=== PATIENT | male | born 1945 | race Caucasian/White ===

== ENCOUNTER 2016-07-16 17:43 | Inpatient (IN) | payer MEDICARE, BC ==
[~2016-07-16] VITALS: Ht 167.6 cm; Wt 72.7 kg
[~2016-07-16 17:43] MED LIST: LISI-167 PO; OMEP20CA9 PO
[2016-07-16 19:04] LABS: HEMOGLOBIN 12.9 g/dL (13.7-18.0)
[2016-07-16 19:11] LABS: ASPARTATE AMINO TRANSFERASE 33 U/L (15-37); BLOOD UREA NITROGEN 31 mg/dL (7-18)
[2016-07-16] MEDS ORDERED: SODIUM CHLORIDE FLUSH 10ML SYR IVF ONE (19:30)
[2016-07-16] MEDS ORDERED: SODIUM CHLORIDE 0.9% 1,000ML IVBOLUS ONE ×3 (19:30→23:00)
[2016-07-16] MEDS ORDERED: POTASSIUM CHLORIDE 40 MEQ in SODIUM CHLORIDE 0.9% 500 ML IV ONE (20:00)
[2016-07-16] MEDS ORDERED: POTASSIUM CHLORIDE 20 MEQ TAB.ER.PRT PO ONE (20:00)
[2016-07-16] MEDS ORDERED: SODIUM CHLORIDE 0.9% 1,000 ML IV ONE (20:26)
[2016-07-17] MEDS ORDERED: BISACODYL 10 MG SUPP PR PRN (00:30)
[2016-07-17] MEDS ORDERED: POLYETHYLENE GLYCOL 17 GM PACKET PO PRN (00:30)
[2016-07-17] MEDS ORDERED: LABETALOL 5MG/ML, 20ML IV PRN (00:30)
[2016-07-17] MEDS ORDERED: DOCUSATE 100 MG CAPSULE PO PRN (00:30)
[2016-07-17] MEDS ORDERED: ACETAMINOPHEN 325 MG TABLET PO PRN (00:30)
[2016-07-17] MEDS ORDERED: ONDANSETRON ODT 4 MG PO PRN (00:30)
[2016-07-17 00:36] LABS: IS PT STATUS REG ER OR PRE ER? YES
[2016-07-17] MEDS: LACTULOSE 20 GM/30 ML UDC PO SCH ×4 (01:00→20:20)
[2016-07-17 02:45] VITALS: BP 100/70
[2016-07-17] MEDS: POTASSIUM CHLORIDE 20 MEQ, MAGNESIUM SULFATE 1 GM, FOLIC ACID 1 MG, THIAMINE 100 MG, MV... IV SCH (03:56)
[2016-07-17] MEDS: HEPARIN 5,000 UNITS/ML, 1ML SQ SCH ×3 (06:00→20:26)
[2016-07-17 07:00] LABS: ASPARTATE AMINO TRANSFERASE 28 U/L (15-37); BLOOD UREA NITROGEN 24 mg/dL (7-18)
[2016-07-17 07:17] LABS: HEMOGLOBIN 10.8 g/dL (13.7-18.0)
[2016-07-17 07:50] VITALS: BP 100/56
[2016-07-17] MEDS ORDERED: POTASSIUM CHLORIDE 20 MEQ TAB.ER.PRT PO ONE ×2 (08:00→14:00)
[2016-07-17] MEDS ORDERED: MAGNESIUM SULFATE PMX 2GM/50ML 50 ML IV ONE (08:00)
[2016-07-17] MEDS ORDERED: LORazepam 2 MG/ML, 1ML IVPush PRN (08:00)
[2016-07-17] MEDS: THIAMINE 100MG TABLET PO SCH (08:35)
[2016-07-17] MEDS: PANTOPROZOLE 40MG TABLET PO SCH (08:35)
[2016-07-17] MEDS: FOLIC ACID 1 MG TABLET PO SCH (08:35)
[2016-07-17] MEDS: VANCOMYCIN 50 MG/ML ORAL SUSP PO SCH ×3 (10:06→20:20)
[2016-07-17 12:50] LABS: BLOOD UREA NITROGEN 22 mg/dL (7-18)
[2016-07-17] MEDS: NS + 20MEQ KCL 1,000 ML IV SCH ×2 (14:00→20:20)
[2016-07-17 14:10] VITALS: BP 88/53
[2016-07-17 19:15] VITALS: BP 95/70
[2016-07-18 01:10] VITALS: BP 83/55
[2016-07-18] MEDS: NS + 20MEQ KCL 1,000 ML IV SCH ×3 (01:26→18:07)
[2016-07-18] MEDS: POTASSIUM CHLORIDE 20 MEQ, MAGNESIUM SULFATE 1 GM, FOLIC ACID 1 MG, THIAMINE 100 MG, MV... IV SCH (02:08)
[2016-07-18] MEDS: VANCOMYCIN 50 MG/ML ORAL SUSP PO SCH ×4 (02:09→21:22)
[2016-07-18] MEDS: HEPARIN 5,000 UNITS/ML, 1ML SQ SCH ×3 (05:11→21:22)
[2016-07-18 06:05] LABS: HEMOGLOBIN 9.7 g/dL (13.7-18.0)
[2016-07-18 06:24] LABS: ASPARTATE AMINO TRANSFERASE 26 U/L (15-37); BLOOD UREA NITROGEN 14 mg/dL (7-18)
[2016-07-18] MEDS ORDERED: POTASSIUM CHLORIDE 20 MEQ TAB.ER.PRT PO ONE (08:30)
[2016-07-18 08:52] VITALS: BP 101/71
[2016-07-18] MEDS: PANTOPROZOLE 40MG TABLET PO SCH (09:18)
[2016-07-18] MEDS: FOLIC ACID 1 MG TABLET PO SCH (09:18)
[2016-07-18] MEDS: THIAMINE 100MG TABLET PO SCH (09:18)
[2016-07-18] MEDS: METOPROLOL TARTRATE 25 MG TABLET PO SCH ×2 (10:41→17:55)
[2016-07-18 13:52] VITALS: BP 104/76
[2016-07-18 20:13] VITALS: BP 108/78
[2016-07-19] MEDS: POTASSIUM CHLORIDE 20 MEQ, MAGNESIUM SULFATE 1 GM, FOLIC ACID 1 MG, THIAMINE 100 MG, MV... IV SCH (00:46)
[2016-07-19 01:51] VITALS: BP 102/70
[2016-07-19] MEDS: VANCOMYCIN 50 MG/ML ORAL SUSP PO SCH ×4 (03:35→20:09)
[2016-07-19 05:54] VITALS: BP 92/53
[2016-07-19] MEDS: HEPARIN 5,000 UNITS/ML, 1ML SQ SCH ×3 (05:55→22:47)
[2016-07-19] MEDS: METOPROLOL TARTRATE 25 MG TABLET PO SCH ×2 (05:55→18:00)
[2016-07-19 06:12] LABS: BLOOD UREA NITROGEN 10 mg/dL (7-18)
[2016-07-19 06:51] LABS: HEMOGLOBIN 9.7 g/dL (13.7-18.0)
[2016-07-19 06:52] VITALS: BP 92/63
[2016-07-19] MEDS ORDERED: MAGNESIUM SULFATE PMX 2GM/50ML 50 ML IV ONE (08:00)
[2016-07-19] MEDS: NS + 20MEQ KCL 1,000 ML IV SCH ×3 (09:15→22:47)
[2016-07-19] MEDS: FOLIC ACID 1 MG TABLET PO SCH (09:16)
[2016-07-19] MEDS: PANTOPROZOLE 40MG TABLET PO SCH (09:16)
[2016-07-19] MEDS: THIAMINE 100MG TABLET PO SCH (09:16)
[2016-07-19 12:49] VITALS: BP 98/60
[2016-07-19 20:11] VITALS: BP 97/67
[2016-07-20 02:48] VITALS: BP 93/65
[2016-07-20] MEDS: VANCOMYCIN 50 MG/ML ORAL SUSP PO SCH ×4 (02:49→21:37)
[2016-07-20] MEDS: NS + 20MEQ KCL 1,000 ML IV SCH (04:29)
[2016-07-20 05:50] VITALS: BP 96/66
[2016-07-20] MEDS: HEPARIN 5,000 UNITS/ML, 1ML SQ SCH ×3 (05:55→21:37)
[2016-07-20] MEDS: METOPROLOL TARTRATE 25 MG TABLET PO SCH (05:57)
[2016-07-20 06:13] LABS: BLOOD UREA NITROGEN 9 mg/dL (7-18)
[2016-07-20 06:58] VITALS: BP 95/68
[2016-07-20] MEDS ORDERED: POTASSIUM PHOSPHATE 44 MEQ in SODIUM CHLORIDE 0.9% 500 ML IV ONE (07:30)
[2016-07-20] MEDS ORDERED: MAGNESIUM SULFATE PMX 4GM/100M 100 ML IV ONE (07:30)
[2016-07-20] MEDS: PANTOPROZOLE 40MG TABLET PO SCH (08:11)
[2016-07-20] MEDS: FOLIC ACID 1 MG TABLET PO SCH (08:11)
[2016-07-20] MEDS: THIAMINE 100MG TABLET PO SCH (08:11)
[2016-07-20] MEDS: MAGNESIUM OXIDE 400 MG TABLET PO SCH ×2 (10:15→21:37)
[2016-07-20 14:17] VITALS: BP 98/70
[2016-07-20] MEDS: SODIUM CHLORIDE 0.9% 1,000 ML IV SCH (14:35)
[2016-07-20 20:24] VITALS: BP 110/76
[2016-07-21 02:10] VITALS: BP 104/59
[2016-07-21] MEDS: VANCOMYCIN 50 MG/ML ORAL SUSP PO SCH ×4 (02:46→21:23)
[2016-07-21] MEDS: SODIUM CHLORIDE 0.9% 1,000 ML IV SCH (02:46)
[2016-07-21] MEDS: HEPARIN 5,000 UNITS/ML, 1ML SQ SCH ×3 (05:12→21:23)
[2016-07-21 06:07] LABS: BLOOD UREA NITROGEN 10 mg/dL (7-18)
[2016-07-21 06:59] VITALS: BP 108/62
[2016-07-21] MEDS: FOLIC ACID 1 MG TABLET PO SCH (08:50)
[2016-07-21] MEDS: PANTOPROZOLE 40MG TABLET PO SCH (08:50)
[2016-07-21] MEDS: MAGNESIUM OXIDE 400 MG TABLET PO SCH ×2 (08:50→21:23)
[2016-07-21] MEDS: THIAMINE 100MG TABLET PO SCH (08:50)
[2016-07-21] MEDS ORDERED: INSULIN REGULAR 100 UNITS/ML, 3ML VIAL IVPush ONE (12:00)
[2016-07-21] MEDS ORDERED: SODIUM BICARBONATE 1 MEQ/ML, 50ML VIAL IVPush ONE (12:00)
[2016-07-21] MEDS ORDERED: DEXTROSE 50%, 50ML SYRINGE IVPush ONE (12:00)
[2016-07-21] MEDS ORDERED: SODIUM BICARB 8.4%, 50ML SYRINGE ONE (12:30)
[2016-07-21] MEDS: LACTATED RINGERS 1,000 ML IV SCH (12:46)
[2016-07-21 13:47] VITALS: BP 110/68
[2016-07-21] MEDS: LACTOBACILLUS CHEW TABLET PO SCH ×2 (15:41→21:23)
[2016-07-21] MEDS ORDERED: MAGNESIUM SULFATE PMX 2GM/50ML 50 ML IV ONE (16:30)
[2016-07-21 16:46] LABS: BLOOD UREA NITROGEN 10 mg/dL (7-18)
[2016-07-21 20:24] VITALS: BP 109/78
[2016-07-22] MEDS: LACTATED RINGERS 1,000 ML IV SCH (01:20)
[2016-07-22 02:39] VITALS: BP 114/82
[2016-07-22] MEDS: VANCOMYCIN 50 MG/ML ORAL SUSP PO SCH ×4 (05:42→20:55)
[2016-07-22 06:01] LABS: BLOOD UREA NITROGEN 10 mg/dL (7-18)
[2016-07-22] MEDS: LACTOBACILLUS CHEW TABLET PO SCH ×4 (06:04→20:55)
[2016-07-22] MEDS: HEPARIN 5,000 UNITS/ML, 1ML SQ SCH ×3 (06:06→20:55)
[2016-07-22 07:31] VITALS: BP 95/63
[2016-07-22] MEDS: THIAMINE 100MG TABLET PO SCH (08:48)
[2016-07-22] MEDS: MAGNESIUM OXIDE 400 MG TABLET PO SCH ×2 (08:48→20:55)
[2016-07-22] MEDS: FOLIC ACID 1 MG TABLET PO SCH (08:48)
[2016-07-22] MEDS: PANTOPROZOLE 40MG TABLET PO SCH (08:48)
[2016-07-22] MEDS ORDERED: MAGNESIUM SULFATE PMX 4GM/100M 100 ML IV ONE (11:00)
[2016-07-22] MEDS ORDERED: POTASSIUM PHOSPHATE 44 MEQ in SODIUM CHLORIDE 0.9% 500 ML IV ONE (11:00)
[2016-07-22 12:13] LABS: BLOOD UREA NITROGEN 6 mg/dL (7-18)
[2016-07-22 12:44] VITALS: BP 102/69
[2016-07-22 20:53] VITALS: BP 114/79
[2016-07-23 01:50] VITALS: BP 91/56
[2016-07-23] MEDS: VANCOMYCIN 50 MG/ML ORAL SUSP PO SCH ×4 (04:41→22:26)
[2016-07-23] MEDS: LACTATED RINGERS 1,000 ML IV SCH ×3 (04:42→22:27)
[2016-07-23] MEDS: HEPARIN 5,000 UNITS/ML, 1ML SQ SCH ×3 (05:35→22:26)
[2016-07-23] MEDS: LACTOBACILLUS CHEW TABLET PO SCH ×4 (05:35→22:26)
[2016-07-23 06:57] VITALS: BP 95/60
[2016-07-23] MEDS ORDERED: MAGNESIUM SULFATE 6 GM in SODIUM CHLORIDE 0.9% 250 ML IV ONE (09:30)
[2016-07-23] MEDS ORDERED: POTASSIUM PHOSPHATE 44 MEQ in SODIUM CHLORIDE 0.9% 500 ML IV ONE (09:30)
[2016-07-23] MEDS: MAGNESIUM OXIDE 400 MG TABLET PO SCH ×2 (10:34→22:26)
[2016-07-23] MEDS: THIAMINE 100MG TABLET PO SCH (10:34)
[2016-07-23] MEDS: PANTOPROZOLE 40MG TABLET PO SCH (10:34)
[2016-07-23] MEDS: FOLIC ACID 1 MG TABLET PO SCH (10:34)
[2016-07-23 13:20] VITALS: BP 98/65
[2016-07-23 20:35] VITALS: BP 109/74
[2016-07-24 02:10] VITALS: BP 110/63
[2016-07-24] MEDS: VANCOMYCIN 50 MG/ML ORAL SUSP PO SCH ×4 (04:23→21:34)
[2016-07-24 05:28] LABS: ASPARTATE AMINO TRANSFERASE 31 U/L (15-37); BLOOD UREA NITROGEN 9 mg/dL (7-18)
[2016-07-24] MEDS: HEPARIN 5,000 UNITS/ML, 1ML SQ SCH ×4 (06:00→22:00)
[2016-07-24] MEDS: LACTOBACILLUS CHEW TABLET PO SCH ×4 (06:23→21:34)
[2016-07-24 07:06] VITALS: BP 112/67
[2016-07-24] MEDS ORDERED: FUROSEMIDE 40 MG/4 ML IV ONE (09:00)
[2016-07-24] MEDS: MAGNESIUM OXIDE 400 MG TABLET PO SCH ×2 (09:12→21:34)
[2016-07-24] MEDS: FOLIC ACID 1 MG TABLET PO SCH (09:12)
[2016-07-24] MEDS: THIAMINE 100MG TABLET PO SCH (09:12)
[2016-07-24] MEDS: PANTOPROZOLE 40MG TABLET PO SCH (09:12)
[2016-07-24 14:09] VITALS: BP 110/71
[2016-07-24 19:10] VITALS: BP 118/85
[2016-07-25 02:00] VITALS: BP 123/82
[2016-07-25] MEDS: VANCOMYCIN 50 MG/ML ORAL SUSP PO SCH ×4 (03:31→22:27)
[2016-07-25 05:30] LABS: BLOOD UREA NITROGEN 9 mg/dL (7-18)
[2016-07-25] MEDS: LACTOBACILLUS CHEW TABLET PO SCH ×4 (05:48→22:27)
[2016-07-25] MEDS: HEPARIN 5,000 UNITS/ML, 1ML SQ SCH ×3 (05:48→22:00)
[2016-07-25 06:45] VITALS: BP 99/65
[2016-07-25] MEDS ORDERED: POTASSIUM PHOSPHATE 44 MEQ in SODIUM CHLORIDE 0.9% 500 ML IV ONE (10:00)
[2016-07-25] MEDS ORDERED: MAGNESIUM SULFATE PMX 4GM/100M 100 ML IV ONE (10:00)
[2016-07-25] MEDS: MAGNESIUM OXIDE 400 MG TABLET PO SCH ×2 (10:58→21:00)
[2016-07-25] MEDS: FOLIC ACID 1 MG TABLET PO SCH (10:58)
[2016-07-25] MEDS: PANTOPROZOLE 40MG TABLET PO SCH (10:58)
[2016-07-25] MEDS: THIAMINE 100MG TABLET PO SCH (10:58)
[2016-07-25 12:30] VITALS: BP 104/70
[2016-07-25] MEDS ORDERED: FUROSEMIDE 40 MG/4 ML IV ONE (17:00)
[2016-07-25 18:42] VITALS: BP 122/86
[2016-07-26 02:10] VITALS: BP 95/65
[2016-07-26] MEDS: VANCOMYCIN 50 MG/ML ORAL SUSP PO SCH ×3 (03:53→17:12)
[2016-07-26] MEDS: HEPARIN 5,000 UNITS/ML, 1ML SQ SCH ×2 (05:57→14:00)
[2016-07-26] MEDS: LACTOBACILLUS CHEW TABLET PO SCH ×3 (05:57→17:12)
[2016-07-26 06:17] LABS: BLOOD UREA NITROGEN 8 mg/dL (7-18)
[2016-07-26 08:48] VITALS: BP 95/65
[2016-07-26] MEDS ORDERED: FUROSEMIDE 40 MG TABLET PO SCH (09:00)
[2016-07-26] MEDS: THIAMINE 100MG TABLET PO SCH (09:35)
[2016-07-26] MEDS: PANTOPROZOLE 40MG TABLET PO SCH (09:35)
[2016-07-26] MEDS: MAGNESIUM OXIDE 400 MG TABLET PO SCH (09:35)
[2016-07-26] MEDS: FOLIC ACID 1 MG TABLET PO SCH (09:35)
[2016-07-26] MEDS ORDERED: FURO40TA6 PO (10:38)
[2016-07-26] MEDS ORDERED: ACID1TAB7 PO (10:38)
[2016-07-26] MEDS ORDERED: VANC1VIA3 PO (10:38)
[2016-07-26] MEDS ORDERED: SPIR25TA PO (10:38)
[2016-07-26] MEDS ORDERED: MAGN400T26 PO (10:44)
[2016-07-26] MEDS ORDERED: SPIRONOLACTONE 25 MG TABLET PO SCH (11:00)
[2016-07-26 14:42] VITALS: BP 98/69
== END 2016-07-26 17:45 | disposition home health service (06) | DRG 432 ==
LOC: ED 21:03 → EDIP 22:07 → 4WST 07-17 03:09
PROVIDERS: ADMIT Internal Medicine; ATTEND Internal Medicine
PROC: 02HV33Z Insertion of Infusion Device into Superior Vena Cava, Percutaneous Approach (ICD-10-PCS; principal; 2016-07-16)
DX: K70.40 Alcoholic hepatic failure without coma (principal); G93.41 Metabolic encephalopathy; E43 Unspecified severe protein-calorie malnutrition; N17.0 Acute kidney failure with tubular necrosis; E87.2 Acidosis; D68.4 Acquired coagulation factor deficiency; A04.7 Enterocolitis due to Clostridium difficile; R64 Cachexia; E83.42 Hypomagnesemia; E86.1 Hypovolemia; E86.0 Dehydration; E87.6 Hypokalemia; D53.9 Nutritional anemia, unspecified; E83.39 Other disorders of phosphorus metabolism; E87.5 Hyperkalemia; F10.20 Alcohol dependence, uncomplicated; H91.90 Unspecified hearing loss, unspecified ear; I10 Essential (primary) hypertension; K21.9 Gastro-esophageal reflux disease without esophagitis; I95.9 Hypotension, unspecified; K70.30 Alcoholic cirrhosis of liver without ascites; K80.20 Calculus of gallbladder without cholecystitis without obstruction; Z68.25 Body mass index [BMI] 25.0-25.9, adult; Z87.891 Personal history of nicotine dependence; Z99.3 Dependence on wheelchair
CPT/HCPCS: 36415; 70450; 71010; 76700; 80048; 80053; 81003; 82140; 83605; 83735; 84100; 84132; 84439; 84443; 84484; 85025; 85610; 85730; 87040; 87324; 93005; 96361; 96365; 96366; J1644; J1815; J1940; J3370; J3411; J3475; J3480; 92523-GN; J7030; J7040; J7050; J7120; J7121